=== PATIENT | male | born 1975 | race Caucasian/White ===

== ENCOUNTER 2024-01-11 16:45 | Emergency (ER) | payer OTHER, SELFPAY ==
[2024-01-11 16:51] VITALS: BP 140/78
[2024-01-11 17:04] VITALS: BP 163/80
[2024-01-11 17:05] VITALS: BMI 44.3
[2024-01-11 17:13] LABS: % Basophils 0.7 % (0-2); % Eosinophils 1.5 % (0-6); % Immature Granulocytes 0.4 % (0-0.5); % Lymphocytes 23.1 % (20.5-51.1); % Monocytes 6.4 % (1.7-9.3); % Neutrophils 67.9 % (42.2-75.2); Absolute Basophils 0.1 10^3/uL (0-0.2); Absolute Eosinophils 0.1 10^3/uL (0-0.7); Absolute Monocytes 0.5 10^3/uL (0.1-0.6); Absolute Neutrophils 5.8 10^3/uL (1.4-6.5); Hematocrit 46.4 % (39.0-52.0); Hemoglobin 15.5 g/dL (13.0-18.0); Mean Corp Hgb Conc. 33.4 g/dL (33.0-37.0); Mean Corpuscular Hgb 28.9 pg (27.0-31.0); Mean Corpuscular Volume 86.4 fL (80.0-94.0); Mean Platelet Volume 10.2 fL (7.4-10.4); Nucleated Red Blood Cells % 0 % (-); Platelet Count 242 10^3/uL (130-400); Red Blood Cell Count 5.37 10^6/uL (4.70-6.10); Red Cell Dist. Width 13.4 % (11.5-14.5); White Blood Cell Count 8.5 10^3/uL (4.8-10.8)
[2024-01-11 17:29] LABS: ALT (SGPT) 34 U/L (0-50); AST (SGOT) 23 U/L (17-59); Albumin 4.6 g/dl (3.5-5.0); Alkaline Phosphatase 68 U/L (38-126); Blood Urea Nitrogen 14 mg/dl (9-20); Calcium 9.5 mg/dl (8.4-10.2); Carbon Dioxide 28 mmol/L (22-30); Chloride 100 mmol/L (98-107); Estimated Creatinine Clearance > 125 ml/min; Glucose 159 mg/dl (70-99); Potassium 4.1 mmol/L (3.5-5.1); Sodium 135 mmol/L (135-145); Total Bilirubin 0.7 mg/dl (0.2-1.3); Total Protein 7.4 g/dl (6.3-8.2); eGFR > 60.00
[2024-01-11 17:39] LABS: Troponin I < 0.012 ng/ml
--- NOTE | 2024-01-11 18:20 | ED.GENMED ---
History of Present Illness
General
Chief Complaint: Chest Pain
Source: patient
Exam Limitations: none
Time Seen by Provider: 01/11/24 17:31
Nursing documentation reviewed up to this point in time: agreed with
Travel History
Have you had any contact with someone who has COVID-19?: No
Do you have any symptoms of coronavirus? Fever > 100 degrees, chills, cough, shortness of breath, sore throat, loss of taste or smell, muscle aches, or headache?: No
History of Present Illness
History of Present Illness:
48-year-old male presenting to the emergency department today with concerns of chest pain over the past 2 days described as left-sided chest discomfort rating to the left axillary region described as achy. No significant shortness of breath, nausea
vomiting diaphoresis. Denies any history of blood clots recent trauma surgery immobilization, leg swelling, smoking or family history of early heart disease
Review of Systems
Review of Systems
Allergies reviewed?: Yes
All Other Systems: ROS reviewed and negative except as documented in HPI and ROS
Phy Exam
Physical Exam
Physical Exam:
GENERAL: Alert , in no apparent distress
EYE: pupils equal and reactive
NECK: Supple, no significant adenopathy.
ENT: o/p clr, mmm.
CARDIAC: Regular rate and rhythm .
LUNGS: Clear breath sounds bilaterally, no acute respiratory distress, no wheezes/rales/rhonchi
ABDOMEN: Soft, without focal tenderness, no r/g, no cvat
NEUROLOGICAL: Alert and oriented, no focal neuro deficits
SKIN: Warm and dry, skin intact.
MUSCULOSKELETAL: No edema, well perfused.
PSYCH: Normal and appropriate interaction.
Scores
Heart Score for Chest Pain Patients
STEMI patient?: No
History: Slightly or Non-Suspicious
ECG: Normal
Age: >45 - <65 years
Risk Factors: 1 or 2 Risk Factors
Troponin: </= Normal Limit
Heart Score for Chest Pain Patients: 2
Heart Score Risk: 2.5% MACE over next 6 weeks
Course
Orders/Labs/Results
Orders:
Orders
01/11/24 16:46
Electrocardiogram (*1) Urgent
Reason for Study: Chest Pain
EKG- Treatment ONCE
01/11/24 17:08
Complete Blood Count/With Diff Urgent
Comprehensive Metabolic Panel Urgent
Troponin I Urgent
01/11/24 17:33
Chest [CR Chest - 2 Views ] Urgent
Comment:
Reason For Exam: cp
Abnormal Lab Results
01/11/24
17:08
Glucose 159 H mg/dl
(70-99)
01/11/24 17:08
01/11/24 17:08
Vital Signs
Initial and Last Documented VS:
Initial Vital Signs
Temp Pulse Resp BP Pulse Ox
98.9 F 84 18 140/78 98
01/11/24 16:51 01/11/24 16:51 01/11/24 16:51 01/11/24 16:51 01/11/24 16:51
Last Documented Vital Signs
Temp Pulse Resp BP Pulse Ox
98.9 F 71 25 142/84 96
01/11/24 16:51 01/11/24 18:27 01/11/24 18:27 01/11/24 18:27 01/11/24 18:15
MDM/Problems Addressed
MDM/Problems Addressed:
48-year-old male presenting to the emergency department today with concerns of chest discomfort intermittently over the past 2 days somewhat persisting today no associated symptoms nausea vomiting diaphoresis or shortness of breath no history of
blood clots or risk factors for blood clots normal vital signs upon arrival EKG normal troponin negative labs unremarkable chest x-ray normal very low risk for ACS advised for close outpatient follow-up return precautions given.
*Critical Care Note
Total Time (30-74mins, 75-104mins- exclusive of procedures): Not Applicable
ED Attending Note
-
Portions of this chart may have been created with voice recognition software.� Occasional wrong word or��sound alike� substitutions may have occurred due to the inherent limitations of voice recognition software.
Discharge Plan
Departure
Patient Disposition: Home (Routine Discharge)
Date of Disposition: 01/11/24
Time of Disposition: 18:20
Patient with high blood pressure during this ER visit?: No
Condition: Good
Covid-19: Not Applicable
Discharge Problem:
Chest pain
Instructions: Chest Pain DCA Follow Up
Referrals:
Beto Nuno, DO [Family Provider] -
Activity Restrictions/Additional Instructions:
You came to the emergency department today with concerns of chest discomfort. Here you had a reassuring evaluation. Please follow closely with cardiology. Return to the emergency department for any worsening, new or concerning symptoms.
Interventions
Interventions:
*Risk Screen - Suicide Last Done: 01/11/24 16:51
*General Assessment Last Done: 01/11/24 16:51
*Neglect/Abuse Screening Last Done: 01/11/24 16:51
ED- Fall Risk Assessment Last Done: 01/11/24 17:05
*ED COVID-19 Vaccine History Last Done: 01/11/24 16:51
*Nursing Disposition Last Done: 01/11/24 18:30
ED- Cardiac Assessment Last Done: 01/11/24 17:05
Discharge Date and Time
Discharge Date/Time: 01/11/24 18:30
Print Language: SAO TOMEAN
[2024-01-11 18:27] VITALS: BP 142/84
== END 2024-01-11 18:30 | disposition home or self-care (01) ==
LOC: EMR 16:45
PROVIDERS: Emergency Medicine; EMERGENCY PHYSICIAN Emergency Medicine; FAMILY PHYSICIAN Family Medicine
DX: R07.89 Other chest pain (principal)
CPT/HCPCS: 99283; 71046; 80053; 84484; 85025; 93005

== ENCOUNTER 2024-04-30 09:26 | Day surgery (SDC) | payer OTHER, SELFPAY ==
[2024-04-30 08:13] VITALS: BMI 42.3
[2024-04-30 08:14] VITALS: BMI 42.3
[2024-04-30 10:18] VITALS: BP 114/70
[2024-04-30 10:30] VITALS: BP 110/69
[2024-04-30 10:41] VITALS: BP 115/64
== END 2024-04-30 10:55 | disposition home or self-care (01) ==
LOC: SDS 09:26
PROVIDERS: ATTENDING PHYSICIAN Internal Medicine Gastroenterology
DX: Z12.11 Encounter for screening for malignant neoplasm of colon (principal); D12.2 Benign neoplasm of ascending colon; D12.3 Benign neoplasm of transverse colon; D12.4 Benign neoplasm of descending colon; K63.5 Polyp of colon; K57.30 Diverticulosis of large intestine without perforation or abscess without bleeding; K62.1 Rectal polyp; Q43.8 Other specified congenital malformations of intestine; K64.8 Other hemorrhoids
CPT/HCPCS: 45385; 88305

== ENCOUNTER 2025-02-03 20:23 | Emergency (ER) | payer OTHER, SELFPAY ==
[2025-02-03 20:26] VITALS: BP 153/90
[2025-02-03 20:51] LABS: % Basophils 0.7 % (0-2); % Eosinophils 1.6 % (0-6); % Immature Granulocytes 0.2 % (0-0.5); % Lymphocytes 24.5 % (20.5-51.1); % Monocytes 5.7 % (1.7-9.3); % Neutrophils 67.3 % (42.2-75.2); Absolute Basophils 0.1 10^3/uL (0-0.2); Absolute Eosinophils 0.1 10^3/uL (0-0.7); Absolute Lymphocytes 2.1 10^3/uL (1.2-3.4); Absolute Monocytes 0.5 10^3/uL (0.1-0.6); Absolute Neutrophils 5.8 10^3/uL (1.4-6.5); Hematocrit 44.4 % (39.0-52.0); Hemoglobin 14.9 g/dL (13.0-18.0); Mean Corp Hgb Conc. 33.6 g/dL (33.0-37.0); Mean Corpuscular Hgb 29.4 pg (27.0-31.0); Mean Corpuscular Volume 87.7 fL (80.0-94.0); Mean Platelet Volume 10.9 fL (7.4-10.4); Nucleated Red Blood Cells % 0 % (-); Platelet Count 204 10^3/uL (130-400); Red Blood Cell Count 5.06 10^6/uL (4.70-6.10); Red Cell Dist. Width 13.1 % (11.5-14.5); White Blood Cell Count 8.6 10^3/uL (4.8-10.8)
[2025-02-03 21:05] LABS: Erythrocyte Sed Rate 8 mm/hour (0-20)
[2025-02-03 21:12] LABS: ALT (SGPT) 31 U/L (0-50); AST (SGOT) 20 U/L (17-59); Albumin 4.3 g/dl (3.5-5.0); Alkaline Phosphatase 49 U/L (38-126); Blood Urea Nitrogen 17 mg/dl (9-20); Calcium 9.2 mg/dl (8.4-10.2); Carbon Dioxide 27 mmol/L (22-30); Chloride 100 mmol/L (98-107); Glucose 124 mg/dl (70-99); Potassium 4.4 mmol/L (3.5-5.1); Sodium 134 mmol/L (135-145); Total Bilirubin 0.6 mg/dl (0.2-1.3); eGFR > 60.00
--- NOTE | 2025-02-04 01:04 | ED.GENMED ---
History of Present Illness
General
Chief Complaint: Visual Problem
Source: patient
Exam Limitations: none
Time Seen by Provider: 02/04/25 00:51
Nursing documentation reviewed up to this point in time: agreed with
History of Present Illness
History of Present Illness:
This is a 49-year-old male with a past medical history of hypertension, hyperlipidemia, who presents emergency department today with concerns of transient blurry vision. Patient reports that earlier this evening, he was sitting outside on the porch
and felt like something got in his eye and he reported to rub his eye with his palm for around 30 seconds. Patient reports that after doing this, he started to have blurry vision in his right eye. This lasted around 2 minutes and resolved without
intervention. Patient reports that he does have allergy to pollen and does question pollen exposure to the eye. Patient reports that he currently has no pain, no visual changes, no foreign body sensation. Patient has no associated headache with
this, no jaw pain. He has no difficulty swallowing. He has no neck pain. He denies any etelvina vision loss and states that it is only blurry vision. He denies double vision. He denies any dizziness, lightheadedness syncopal episodes. Patient
reports that he is nearsighted and does follow with sheet sewer once a year.
Review of Systems
Review of Systems
All Other Systems: ROS reviewed and negative except as documented in HPI and ROS
Phy Exam
Physical Exam
Physical Exam:
General: Patient is well appearing and in no acute distress; non-toxic
Skin: Warm and dry, no rashes or lesions
Head: Normocephalic, atraumatic. No temporal artery tenderness.
Eyes: Sclera non-icteric. EOMs intact. No scleral injection. With fluorescein staining, there is no evidence of corneal ulcer or abrasion.
Cardiac: Regular rate and rhythm, no murmurs
Peripheral Vascular: No carotid bruits bilateral
Pulm: Normal respiratory effort, no wheezes, rales, rhonchi
Neuro: CN II-XII intact, no focal neurologic deficits.
Psychiatric: Appropriate mood and affect.
Course
Orders/Labs/Results
Orders:
Orders
02/03/25 20:44
CRP [C-Reactive Protein] Urgent
Complete Blood Count/With Diff Urgent
Comprehensive Metabolic Panel Urgent
Erythrocyte Sed Rate Urgent
02/03/25 21:52
CT Head W/o Iv Contrast Urgent
Comment:
Reason For Exam: vision change
02/04/25 00:54
Visual Acuity- Treatment ONCE
Abnormal Lab Results
02/03/25
20:44
MPV 10.9 H fL
(7.4-10.4)
Sodium 134 L mmol/L
(135-145)
Glucose 124 H mg/dl
(70-99)
C-Reactive Protein 11.30 H mg/L
(0.0-10.00)
02/03/25 20:44
02/03/25 20:44
Vital Signs
Initial and Last Documented VS:
Initial Vital Signs
Temp Pulse Resp BP Pulse Ox
98.4 F 79 20 153/90 98
02/03/25 20:26 02/03/25 20:26 02/03/25 20:26 02/03/25 20:26 02/03/25 20:26
Last Documented Vital Signs
Temp Pulse Resp BP Pulse Ox
98.4 F 79 20 138/86 98
02/03/25 20:26 02/03/25 20:26 02/03/25 20:26 02/04/25 02:42 02/04/25 02:42
MDM/Problems Addressed
Differential Diagnosis Includes:
Differentials include eye trauma, ocular foreign body, corneal abrasion, complex migraine
MDM/Problems Addressed:
This is a 49-year-old male with a past medical history of hypertension, hyperlipidemia, who presents emergency department today with concerns of transient blurry vision. Patient reports that earlier this evening, he was sitting outside on the porch
and felt like something got in his eye and he reported to rub his eye with his palm for around 30 seconds. Patient reports that after doing this, he started to have blurry vision in his right eye.this is a 49-year-old male with a past medical
history of hypertension, hyperlipidemia, who presents emergency department today with concerns of transient blurry vision. She is currently completely asymptomatic. Physical exam he is well-appearing in no acute distress there is no fluorescein
uptake within the cornea and there is no scleral injection. He has normal neurologic exam. He has no carotid bruits. Suspect transient blurry vision from trauma to the eye, do not suspect acute neurologic or ophthalmologic emergency. Patient
does follow with casting plug assembler, recommended follow-up calling office tomorrow for a sooner appointment. Patient expressed understanding. Patient stable for discharge
Chronic conditions affecting care:
High blood pressure, hyperlipidemia
*Pulse Oximetry
Patient hypoxic: no
*Critical Care Note
Total Time (30-74mins, 75-104mins- exclusive of procedures): Not Applicable
Data Reviewed
Review of Other/Old Records Reveals: Records (Reviewed ER/documentation from 01/11/2024 patient seen for chest pain was discharged after unremarkable workup)
Source: patient and records
ED Attending Note
-
Portions of this chart may have been created with voice recognition software.� Occasional wrong word or��sound alike� substitutions may have occurred due to the inherent limitations of voice recognition software.
Discharge Plan
Departure
Patient Disposition: Home (Routine Discharge)
Date of Disposition: 02/04/25
Time of Disposition: 01:47
Patient with high blood pressure during this ER visit?: Yes
Condition: Good
Discharge Problem:
Blurred vision
Instructions: BLOOD PRESSURE
Prescriptions:
No Action
lisinopril 40 mg Tablet
40 mg PO DAILY
Plenvu 140-9-5.2 gram Powder In Packet, Sequential
0 PO .COMPLEX
Rx Instructions:
follow prep orders
Referrals:
CHAITANYA MCDUFFIE [Other]
Activity Restrictions/Additional Instructions:
Your fluorescein staining did not reveal any evidence of corneal abrasion or corneal ulcer. Your CT scan of the head was normal. Your CBC and CMP blood work are unremarkable.
Please follow-up with your casting plug assembler, please call them tomorrow to schedule a follow-up appointment.
PLEASE RETURN EMERGENCY DEPARTMENT SHOULD YOU DEVELOP CHEST PAIN, SHORTNESS OF BREATH, VISUAL LOSS, DOUBLE VISION, ASSOCIATED WITH HEADACHE, VOMITING, NECK PAIN, OR ANY OTHER SIGNS OR SYMPTOMS RECENTLY.
Interventions
Interventions:
*Risk Screen - Suicide Last Done: 02/04/25 02:09
*General Assessment Last Done: 02/03/25 20:26
*Neglect/Abuse Screening Last Done: 02/04/25 02:09
*ED- Fall Risk Assessment Last Done: 02/04/25 02:09
*Nursing Disposition Last Done: 02/04/25 02:42
ED- Neurological Assessment Last Done: 02/04/25 02:10
ED-EENT Assessment Last Done: 02/04/25 02:11
ED Swallowing Screen Last Done: 02/04/25 02:10
Discharge Date and Time
Discharge Date/Time: 02/04/25 02:42
Print Language: SAMI
[2025-02-04 02:42] VITALS: BP 138/86
== END 2025-02-04 02:42 | disposition home or self-care (01) ==
LOC: EMR 20:23
PROVIDERS: Student in an Organized Health Care Education/Training Program; EMERGENCY PHYSICIAN Emergency Medicine
DX: H53.8 Other visual disturbances (principal); I10 Essential (primary) hypertension; E78.5 Hyperlipidemia, unspecified
CPT/HCPCS: 99284; 70450; 80053; 85025; 85652; 86140